=== PATIENT | male | born 1985 | race Caucasian/White ===

== ENCOUNTER → 2025-03-28 13:01 | Outpatient (REF) | payer OTHER, SELFPAY | LOC: PAVMRI 13:01 | PROVIDERS: ATTENDING PHYSICIAN Chiropractor; FAMILY PHYSICIAN Internal Medicine | DX: M54.12 Radiculopathy, cervical region (principal); M54.16 Radiculopathy, lumbar region | CPT/HCPCS: 72141; 72148 ==